=== PATIENT | female | born 1975 | race Caucasian/White ===

== ENCOUNTER 2017-01-14 19:32 | Emergency (ER) | payer BC, MEDICARE ==
[~2017-01-14 19:32] MED LIST: ISOVUE-370 76%-LOCM 1 ML ONE; Iopamidol 370 76% 50 ML VIAL FS ONE
[2017-01-14 20:10] LABS: Bilirubin Negative (Negative); Blood, Urine Negative (Negative); Glucose, Urine (Dipstick) Negative (Negative); Ketone, Urine Negative (Negative); Nitrite Negative (Negative); Protein, Urine (Dipstick) Negative (Neg-Trace)
[2017-01-14 20:12] LABS: Hematocrit 37.9 % (36.0-47.0); Mean Platelet Volume 7.6 fL (7.4-10.4); Red Blood Cell (RBC) Count 3.88 mill/uL (4.20-5.40); White Blood Cell (WBC) Count 21.3 thou/uL (4.8-10.8)
[2017-01-14] MEDS ORDERED: Ketorolac Tromethamine 30 MG/ML VIAL ONE (20:19)
[2017-01-14 20:26] LABS: ALT (SGPT) Less than 7 U/L (8-55); AST (SGOT) 7 U/L (5-34); Alkaline Phosphatase 52 U/L (40-150); Anion Gap 13 mmol/L (10-20); BUN (Urea Nitrogen) 9 mg/dL (7.0-18.7); Bilirubin, Total 0.3 mg/dL (0.2-1.2); Calc. Creatinine Clearance 0 mL/min (70-130); Calcium 8.9 mg/dL (7.8-10.44); Carbon Dioxide 29 mmol/L (22-29); Chloride 103 mmol/L (98-107); Estimated GFR-MDRD 82; Lipase 58 U/L (8-78); Protein, Total 6.6 g/dL (6.0-8.3)
[2017-01-14 20:34] LABS: Band 1 % (5-11); Neutrophil 81 % (42-75)
--- NOTE | 2017-01-14 22:11 | CT ---
CT ABDOMEN WITH IV CONTRAST CT PELVIS WITH IV CONTRAST 01/14/17 HISTORY: Left lower quadrant abdominal pain that began three hours prior to arrival. COMPARISON: 07/24/08 FINDINGS: Post cholecystectomy changes are again noted. Postsurgical changes involving the stomach are seen. The lung bases, liver, spleen, pancreas, bilateral adrenal glands, kidneys, abdominal aorta, and uri nary bladder demonstrate a normal CT appearance. The uterus appears surgically absent. There is a small contrast and gas filled structure seen posterior to the third portion of the duoden um, probably related to a small duodenal diverticulum. Opacified loops of small bowel are normal in caliber. The cecum extends into the lower pelvis, and the appendix is visualized and normal in caliber and fi lled with gas. No free fluid, fluid collection, or lymphadenopathy seen in the abdomen or pelvis. Th ere has been no other interval change when compared to the prior exam. IMPRESSION: 1. No acute findings are seen in the abdomen or pelvis. 2. Postsurgical changes related to cholecystectomy and hysterectomy. There are also postsurgica l changes involving the stomach. 3. Small duodenal diverticulum. 4. No CT evidence of appendicitis. 5. Probable prominent bone island in the right femoral neck. POS: [facility]
== END 2017-01-14 23:13 | disposition home or self-care (01) ==
LOC: ERS 19:32
DX: R10.32 Left lower quadrant pain (principal); E03.9 Hypothyroidism, unspecified; M19.90 Unspecified osteoarthritis, unspecified site; F41.9 Anxiety disorder, unspecified
CPT/HCPCS: 36415; 74177; 80053; 81003; 83690; 85025; 96361; 96374; 96375; J1885; J2270

== ENCOUNTER 2021-01-03 01:15 | Outpatient (CLI) | payer BC, MEDICARE | END 2021-01-03 01:16 | disposition home or self-care (01) | LOC: BICMAMMO 01:15 | PROVIDERS: ATTEND Family Medicine | DX: Z12.31 Encounter for screening mammogram for malignant neoplasm of breast (principal); Z80.3 Family history of malignant neoplasm of breast | CPT/HCPCS: 77063; 77067 ==

== ENCOUNTER 2023-07-15 14:57 | Outpatient (CLI) | payer BC | END 2023-07-15 14:58 | disposition home or self-care (01) | LOC: BICRAD 14:57 | PROVIDERS: ATTEND Family Medicine | DX: Z12.11 Encounter for screening for malignant neoplasm of colon (principal); M54.2 Cervicalgia; M25.531 Pain in right wrist; S52.611A Displaced fracture of right ulna styloid process, initial encounter for closed fracture; M47.812 Spondylosis without myelopathy or radiculopathy, cervical region; Z98.1 Arthrodesis status | CPT/HCPCS: 72050 ==